=== PATIENT | female | born 1975 | race Caucasian/White ===

== ENCOUNTER 2018-04-19 15:22 | Emergency (ER) | payer SELFPAY ==
[~2018-04-19] VITALS: Ht 160 cm; Wt 65.0 kg
[2018-04-19] MEDS ORDERED: KETOROLAC 60MG/2ML VIAL IM ONE (16:15)
[2018-04-19] MEDS ORDERED: CYCLOBENZAPRINE 10MG TABLET PO ONE (16:15)
[2018-04-19 17:46] LABS: CLARITY URINE CLOUDY (CLEAR); COLOR URINE YELLOW (YELLOW); KETONES URINE NEGATIVE (NEGATIVE); LEUKOCYTE ESTERASE URINE 2+ (NEGATIVE); NITRITE URINE NEGATIVE (NEGATIVE); OCCULT BLOOD URINE NEGATIVE (NEGATIVE); PROTEIN URINE NEGATIVE (NEGATIVE); SPECIFIC GRAVITY URINE 1.021 (1.005-1.030)
[2018-04-19] MEDS ORDERED: HYDROCODONE/APAP 7.5/325MG 1 TAB TABLET PO ONE (18:30)
[2018-04-19 19:15] VITALS: BP 126/72
== END 2018-04-19 19:00 | disposition home or self-care (01) ==
LOC: ER 15:22
DX: S22.32XA Fracture of one rib, left side, initial encounter for closed fracture (principal); X50.0XXA Overexertion from strenuous movement or load, initial encounter; Y93.89 Activity, other specified; Y92.89 Other specified places as the place of occurrence of the external cause; Y99.8 Other external cause status
CPT/HCPCS: 71101; 81003; 81025; 96372; 99285; J1885; Z7610

== ENCOUNTER 2018-06-05 09:13 | Emergency (ER) | payer SELFPAY ==
[~2018-06-05] VITALS: Ht 134.6 cm; Wt 62.0 kg
[2018-06-05] MEDS ORDERED: ONDANSETRON HCL 4MG/2ML VIAL IV STA (10:14)
[2018-06-05] MEDS ORDERED: SODIUM CHLORIDE 0.9% 1,000 ML IV ONE (10:14)
[2018-06-05] MEDS ORDERED: IBUPROFEN 600MG TABLET PO ONE (10:15)
[2018-06-05 10:40] VITALS: BP 118/87
[2018-06-05 10:47] LABS: BASOPHILS % 0.4 % (0.0-2.0); EOSINOPHILS % 1.8 % (0.0-5.0); HEMATOCRIT. 41.3 % (36.0-48.0); LYMPHOCYTES % 14.5 % (20.0-50.0); MEAN CORPUSCULAR HEMOGLOBIN 29.6 pg (28.0-32.0); MEAN CORPUSCULAR VOLUME 87.5 fL (81.0-99.0); MEAN PLATELET VOLUME 8.5 fl (7.4-10.4); MONOCYTES % 11.5 % (2.0-8.0); NEUTROPHILS % 71.8 % (40.0-76.0); PLATELET 252 x1000/uL (130-400); RED BLOOD CELL COUNT 4.72 mill/uL (4.2-5.4); RED CELL DISTRIBUTION WIDTH 14.4 % (11.6-14.6)
[2018-06-05 10:52] LABS: CHLORIDE 107 mEq/L (98-107)
[2018-06-05 10:53] LABS: HCG SCREEN NEGATIVE
== END 2018-06-05 12:15 | disposition home or self-care (01) ==
LOC: ER 09:13
DX: R11.10 Vomiting, unspecified (principal); R19.7 Diarrhea, unspecified; R51 Headache
CPT/HCPCS: 36415; 80053; 84703; 85025; 96361; 96374; 99285; J2405; J7030; Z7610